=== PATIENT | male | born 1980 | race African-American/Black ===

== ENCOUNTER 2019-07-29 18:49 | Emergency (ER) | payer MEDICAID ==
[~2019-07-29] VITALS: Ht 167.6 cm; Wt 84.0 kg
[2019-07-29 20:22] LABS: BASOPHILS % 1.3 % (0.0-2.0); EOSINOPHILS % 0.3 % (0.0-5.0); HEMATOCRIT. 22.9 % (42.0-52.0); HEMOGLOBIN. 8.2 g/dL (14.0-18.0); MEAN CORPUSCULAR HEMOGLOBIN 33.2 pg (28.0-32.0); MEAN CORPUSCULAR VOLUME 92.9 fL (80.0-94.0); MEAN PLATELET VOLUME 6.3 fl (7.4-10.4); MONOCYTES % 9.3 % (2.0-8.0); NEUTROPHILS % 60.1 % (40.0-76.0); PLATELET 457 x1000/uL (130-400); RED BLOOD CELL COUNT 2.46 mill/uL (4.7-6.1); RED CELL DISTRIBUTION WIDTH 13.8 % (11.6-14.6)
[2019-07-29] MEDS ORDERED: QUETIAPINE FUMARATE 50MG TABLET PO SCH (20:30)
[2019-07-29 20:31] LABS: CHLORIDE 102 mEq/L (98-107)
[2019-07-29 20:38] LABS: ETHANOL BLOOD 99 mg/dL
[2019-07-29 21:42] LABS: CLARITY URINE CLEAR (CLEAR); COLOR URINE YELLOW (YELLOW); KETONES URINE NEGATIVE (NEGATIVE); LEUKOCYTE ESTERASE URINE NEGATIVE (NEGATIVE); NITRITE URINE NEGATIVE (NEGATIVE); OCCULT BLOOD URINE NEGATIVE (NEGATIVE); PROTEIN URINE NEGATIVE (NEGATIVE); SPECIFIC GRAVITY URINE 1.008 (1.005-1.030)
[2019-07-29 22:02] LABS: *AMPHETAMINES SCREEN URINE NEGATIVE (NEGATIVE)
[2019-07-29 22:03] LABS: *BARBITURATES SCREEN URINE NEGATIVE (NEGATIVE); *BENZODIAZEPINES SCREEN URINE NEGATIVE (NEGATIVE); *COCAINE SCREEN URINE NEGATIVE (NEGATIVE); METHADONE URINE SCREEN NEGATIVE (NEGATIVE); OPIATES URINE SCREEN NEGATIVE (NEGATIVE); PHENCYCLIDINE URINE SCREEN NEGATIVE (NEGATIVE)
[2019-07-29 22:04] LABS: CANNABINOID URINE SCREEN PRESUMTIVE POSITIVE (NEGATIVE)
[2019-07-29] MEDS ORDERED: POTASSIUM CHLORIDE 20MEQ TABLET SR PO NR (23:30)
[2019-07-30] MEDS ORDERED: LORAZEPAM 0.5MG TABLET PO ONE (08:15)
[2019-07-30 14:47] VITALS: BP 130/82
== END 2019-07-30 15:06 ==
LOC: EDBD 19:07 → ER 19:07
DX: R45.851 Suicidal ideations (principal)
CPT/HCPCS: 36415; 80053; 80305; 80307; 80320; 80329; 81003; 85025; 99285; Z7610; G0480